=== PATIENT | male | born 1985 | race American Indian/Alaskan Native ===

== ENCOUNTER 2016-03-22 13:19 | Emergency (ER) | payer BC, OTHER | END 2016-03-22 15:56 | disposition left against medical advice (07) | LOC: ED 13:19 | DX: R56.9 Unspecified convulsions (principal); Z88.2 Allergy status to sulfonamides; Z88.8 Allergy status to other drugs, medicaments and biological substances; Z53.21 Procedure and treatment not carried out due to patient leaving prior to being seen by health care provider ==

== ENCOUNTER 2017-08-27 09:47 | Emergency (ER) | payer BC, OTHER ==
--- NOTE | 2017-08-27 10:45 | Cat Scan Report ---
FINAL REPORT EXAM: CT HEAD/BRAIN WO CON HISTORY: neuro deficits < 6hrs or sx present upon awakening TECHNIQUE: CT of the Head without IV contrast. PRIORS: None currently available. FINDINGS: There is no evidence for acute ischemia. There is no hemorrhage. There is no midline shift. There is no hydrocephalus. There is no mass. Age appropriate johnson-white matter attenuation is noted. There is no calvarial fracture. The temporal bones demonstrate aerated mastoid air cells. The middle ears appear unremarkable. Mild mucosal thickening in the left sphenoid sinus. Globes are intact. IMPRESSION: No acute intracranial findings.
[2017-08-27 11:08] LABS: INR 0.95 (0.87-1.13)
[2017-08-27 11:09] LABS: Partial Thromboplastin Time 32.5 Sec. (24.2-36.6)
[2017-08-27 11:11] LABS: BUN/Creatinine Ratio 9; Blood Urea Nitrogen 10 mg/dL (9-20); Calcium 9.6 mg/dL (8.4-10.2); Hemolysis Index 7
--- NOTE | 2017-08-27 11:24 | Emergency Department Report ---
ED Neuro Deficit HPI - General Chief Complaint: Neuro Symptoms/Deficit Stated Complaint: LEFT SIDE NUMBNESS Time Seen by Provider: 08/27/17 10:10 Source: patient Mode of arrival: Ambulatory Limitations: No Limitations - History of Present Illness Initial Comments: This is a 31-year-old man with a history of childhood epilepsy. He states that he went to work at about 9:00 this morning. Shortly there after he recalls hyperventilating that is breathing fast. He noted that he had tingling and numbness of his left arm and also his chest. He presented to the emergency department for evaluation for this. He was unaware of any weakness. On my neurological exam, there was 4+ out of 5 Global weakness of the left upper extremity to include senior operations analyst and also 4+ out of 5 accessory motor function of the shoulder. Due to this I discussed the case with Dr. Hurtado the hospitalist as well as detail and neurologist. MR/MRA and MRV of the brain has been ordered on an urgent basis. A CT of the head was normal. -: Gradual (preceded by hyperventilation) Location: left arm Presenting Symptoms: Present: Weak/Paralyzed One Side (patient did not refer weakness only numbness and tingling) History of same: No Place: work Severity: mild Quality: numb Improves With: none Worsens With: none On Anticoagulants: No Context: gradual onset Associated Symptoms: denies other symptoms (patient unaware of any weakness) Treatments Prior to Arrival: none - Related Data Home Medications: Home Medications Medication Instructions Recorded Confirmed Last Taken Lisinopril [Zestril TAB] 10 mg PO QDAY 11/10/15 11/10/15 11/10/15 Previous Rx's Medication Instructions Recorded Last Taken Type levETIRAcetam [Keppra TAB] 1,000 mg PO BID #60 tab 11/10/15 Unknown Rx Amoxicillin/K Clav Tab [Augmentin 1 tab PO Q12HR #14 tab 01/21/16 Unknown Rx 875 mg] Ibuprofen [Motrin] 800 mg PO Q8HR PRN #15 tablet 01/21/16 Unknown Rx Allergies/Adverse Reactions: Allergies Allergy/AdvReac Type Severity Reaction Status Date / Time sulfamethoxazole Allergy Swelling Verified 01/21/16 13:35 [From Bactrim] trimethoprim [From Bactrim] Allergy Swelling Verified 01/21/16 13:35 ED Review of Systems ROS: Stated complaint: LEFT SIDE NUMBNESS Other details as noted in HPI Constitutional: denies: chills, fever Eyes: denies: eye pain, eye discharge, vision change ENT: denies: ear pain, throat pain Respiratory: denies: cough, shortness of breath, wheezing Cardiovascular: denies: chest pain, palpitations Endocrine: no symptoms reported Gastrointestinal: denies: abdominal pain, nausea, diarrhea Genitourinary: denies: urgency, dysuria Musculoskeletal: denies: back pain, joint swelling, arthralgia Skin: denies: rash, lesions Neurological: as per HPI, weakness (global weakness involving the shoulder girdle as well as the left upper arm was found but actually no drift), numbness. denies: headache, paresthesias Psychiatric: denies: anxiety, depression Hematological/Lymphatic: denies: easy bleeding, easy bruising ED Past Medical Hx - Past Medical History Previous Medical History?: Yes Hx Hypertension: Yes Hx Seizures: Yes Hx Psychiatric Treatment: Yes (bilpolar, depression) - Social History Smoking Status: Never Smoker Substance Use Type: None - Medications Home Medications: Home Medications Medication Instructions Recorded Confirmed Last Taken Type Lisinopril [Zestril TAB] 10 mg PO QDAY 11/10/15 11/10/15 11/10/15 History levETIRAcetam [Keppra TAB] 1,000 mg PO BID #60 tab 11/10/15 Unknown Rx Amoxicillin/K Clav Tab [Augmentin 1 tab PO Q12HR #14 tab 01/21/16 Unknown Rx 875 mg] Ibuprofen [Motrin] 800 mg PO Q8HR PRN #15 tablet 01/21/16 Unknown Rx ED Neuro Physical Exam - General Limitations: No Limitations General appearance: alert, in no apparent distress Suspected Stroke: No (I believe defects are non-physiological) - Head Head exam: Present: atraumatic, normocephalic - Eye Eye exam: Present: normal appearance - ENT ENT exam: Present: mucous membranes moist - Neck Neck exam: Present: normal inspection. Absent: tenderness, meningismus - Respiratory Respiratory exam: Present: normal lung sounds bilaterally. Absent: respiratory distress - Cardiovascular Cardiovascular Exam: Present: regular rate, normal rhythm. Absent: systolic murmur, diastolic murmur, rubs, gallop - GI/Abdominal GI/Abdominal exam: Present: soft, normal bowel sounds. Absent: distended, tenderness, guarding, rebound, rigid - Rectal Rectal exam: Present: deferred - Extremities Exam Extremities exam: Present: normal inspection, normal capillary refill. Absent: calf tenderness - Back Exam Back exam: Present: normal inspection - Neurological Exam Neurological exam: Present: alert, oriented X3, CN II-XII intact, motor sensory deficit (see above description) - NIHSS Assessment Interval: Baseline 1a. Level of Consciousness: alert 1b. LOC Questions: answers correctly 1c. LOC Commands: performs tasks correctly 2. Best Gaze: normal 3. Visual: no visual loss 4. Facial Palsy: normal symmetrical movement 5b. Motor Arm Right: no drift 5a. Motor Arm Left: no drift 6a. Motor Leg Left: no drift 6b. Motor Leg Right: no drift 7. Limb Ataxia: absent 8. Sensory: mild/moderate sensory loss 9. Best Language: no aphasia 10. Dysarthria: normal 11. Extinction/Inattention: no abnormality Total Score: 1 Stroke Severity: Minor Stroke - Psychiatric Psychiatric exam: Present: normal affect, normal mood - Skin Skin exam: Present: warm, dry, intact, normal color. Absent: rash ED Course Vital Signs 08/27/17 09:51 Temperature 98.5 F Pulse Rate 64 Respiratory 17 Rate Blood Pressure 151/94 O2 Sat by Pulse 100 Oximetry - Reevaluation(s) Reevaluation #1: Patient's symptoms were preceded by hyperventilation. Numbness of the arm and the chest would be certainly very atypical. Motor involvement of the left upper extremity and the sensory muscle group is also difficult to reconcile to me. Notwithstanding this, we have obtained consultation from a telephone neurologist. We have ordered emergency MR studies which will begin shortly. 08/27/17 11:25 Reevaluation #2: Patient received an examination by the telemetry neurologist. She has recommended TPA. She is given the patient a stroke score of 2. She has explained to the patient the risks and benefits of TPA. She has recommended we go ahead with TPA. Therefore I am going to defer to the neurologist and order TPA. 08/27/17 11:44 Reevaluation #3: After the consultation with the neurologist Dr. Chanel who recommended TPA I placed the order and inform the primary nursing staff and the charge nurse. This was at 11:40. The patient's last known well time he states was after 9 AM. I spoke with the charge nurse related to the importance of time to administration. I also spoke with the pharmacist to clarify the order in the [employer] system as the calculator did not seem to be crossing over. The patient 's bolus dose is 7.2 mg. The nurses were instructed to remove 28 mgs from the vial give the 7.2 mg bolus dose and the remainder over 1 hour as per usual TPA for ischemic stroke protocol. Dr. Hurtado is here in the emergency department and aware of patient. 08/27/17 12:04 - Lab Data Result diagrams: 08/27/17 10:27 08/27/17 10:27 Lab Results 08/27/17 08/27/17 08/27/17 Range/Units 10:27 10:27 10:27 WBC 4.1 L (4.5-11.0) K/mm3 RBC 4.69 (3.65-5.03) M/mm3 Hgb 14.2 (11.8-15.2) gm/dl Hct 41.4 (35.5-45.6) % MCV 88 (84-94) fl MCH 30 (28-32) pg MCHC 34 (32-34) % RDW 13.4 (13.2-15.2) % Plt Count 294 (140-440) K/mm3 Lymph % (Auto) 42.3 H (13.4-35.0) % [place] % (Auto) 10.9 H (0.0-7.3) % Eos % (Auto) 0.1 (0.0-4.3) % Baso % (Auto) [place] Lymph # 1.7 (1.2-5.4) K/mm3 [place] # 0.5 (0.0-0.8) K/mm3 Eos # 0.0 (0.0-0.4) K/mm3 Baso # 0.0 (0.0-0.1) K/mm3 Seg Neutrophils % 45.9 (40.0-70.0) % Seg Neutrophils # 1.9 (1.8-7.7) K/mm3 PT 13.2 (12.2-14.9) Sec. INR 0.95 (0.87-1.13) APTT 32.5 (24.2-36.6) Sec. Thrombin Time (15.1-19.6) Sec. Sodium 138 (137-145) mmol/L Potassium 3.8 (3.6-5.0) mmol/L Chloride 100.1 (98-107) mmol/L Carbon Dioxide 27 (22-30) mmol/L Anion Gap 15 mmol/L BUN 10 (9-20) mg/dL Creatinine 1.1 (0.8-1.5) mg/dL Estimated GFR > 60 ml/min BUN/Creatinine Ratio 9 % Glucose 83 (75-100) mg/dL POC Glucose (70-105) Calcium 9.6 (8.4-10.2) mg/dL Troponin T < 0.010 (0.00-0.029) ng/mL 08/27/17 08/27/17 Range/Units 10:27 11:35 WBC (4.5-11.0) K/mm3 RBC (3.65-5.03) M/mm3 Hgb (11.8-15.2) gm/dl Hct (35.5-45.6) % MCV (84-94) fl MCH (28-32) pg MCHC (32-34) % RDW (13.2-15.2) % Plt Count (140-440) K/mm3 Lymph % (Auto) (13.4-35.0) % [place] % (Auto) (0.0-7.3) % Eos % (Auto) (0.0-4.3) % Baso % (Auto) Lymph # (1.2-5.4) K/mm3 [place] # (0.0-0.8) K/mm3 Eos # (0.0-0.4) K/mm3 Baso # (0.0-0.1) K/mm3 Seg Neutrophils % (40.0-70.0) % Seg Neutrophils # (1.8-7.7) K/mm3 PT (12.2-14.9) Sec. INR (0.87-1.13) APTT (24.2-36.6) Sec. Thrombin Time 16.1 (15.1-19.6) Sec. Sodium (137-145) mmol/L Potassium (3.6-5.0) mmol/L Chloride (98-107) mmol/L Carbon Dioxide (22-30) mmol/L Anion Gap mmol/L BUN (9-20) mg/dL Creatinine (0.8-1.5) mg/dL Estimated GFR ml/min BUN/Creatinine Ratio % Glucose (75-100) mg/dL POC Glucose 70 (70-105) Calcium (8.4-10.2) mg/dL Troponin T (0.00-0.029) ng/mL Laboratory Results - last 24 hr 08/27/17 08/27/17 08/27/17 10:27 10:27 10:27 PT 13.2 INR 0.95 APTT 32.5 Thrombin Time 16.1 Sodium 138 Potassium 3.8 Chloride 100.1 Carbon Dioxide 27 Anion Gap 15 BUN 10 Creatinine 1.1 Estimated GFR > 60 BUN/Creatinine Ratio 9 Glucose 83 Calcium 9.6 Troponin T < 0.010 Laboratory Results - last 24 hr 08/27/17 08/27/17 08/27/17 10:27 10:27 10:27 WBC 4.1 L RBC 4.69 Hgb 14.2 Hct 41.4 MCV 88 MCH 30 MCHC 34 RDW 13.4 Plt Count 294 Lymph % (Auto) 42.3 H [place] % (Auto) 10.9 H Eos % (Auto) 0.1 Baso % (Auto) [place] Operator Lymph # 1.7 [place] # 0.5 Eos # 0.0 Baso # 0.0 Seg Neutrophils % 45.9 Seg Neutrophils # 1.9 PT 13.2 INR 0.95 APTT 32.5 Thrombin Time Sodium 138 Potassium 3.8 Chloride 100.1 Carbon Dioxide 27 Anion Gap 15 BUN 10 Creatinine 1.1 Estimated GFR > 60 BUN/Creatinine Ratio 9 Glucose 83 POC Glucose Calcium 9.6 Troponin T < 0.010 08/27/17 08/27/17 10:27 11:35 WBC RBC Hgb Hct MCV MCH MCHC RDW Plt Count Lymph % (Auto) [place] % (Auto) Eos % (Auto) Baso % (Auto) Lymph # [place] # Eos # Baso # Seg Neutrophils % Seg Neutrophils # PT INR APTT Thrombin Time 16.1 Sodium Potassium Chloride Carbon Dioxide Anion Gap BUN Creatinine Estimated GFR BUN/Creatinine Ratio Glucose POC Glucose 70 Calcium Troponin T - Thrombolytic Inclusion/Exclusion Thrombolytic Exclusion Criteria: Onset of Symptoms Unknown Thrombolytic Inclusion Criteria: Ischemic Stroke Onset< 3h, NIH Stroke Scale Deficit Critical Care Time: Yes Critical care time in (mins) excluding proc time.: 60 Critical care attestation.: If time is entered above; I have spent that time in minutes in the direct care of this critically ill patient, excluding procedure time. ED Disposition Clinical Impression: Focal neurological deficit Disposition: OP ADMIT IP TO THIS HOSP Is pt being admited?: Yes Does the pt Need Aspirin: No (not at this juncture. Will be given as per core measure) Condition: Stable Time of Disposition: 12:12
[2017-08-27 11:33] LABS: Eosinophils % (Auto) 0.1 % (0.0-4.3); Hematocrit 41.4 % (35.5-45.6); Hemoglobin 14.2 gm/dl (11.8-15.2); Lymphocytes # (Auto) 1.7 K/mm3 (1.2-5.4); Lymphocytes % (Auto) 42.3 % (13.4-35.0); Mean Corpuscular HGB Conc 34 % (32-34); Mean Corpuscular Hemoglobin 30 pg (28-32); Mean Corpuscular Volume 88 fl (84-94); Monocytes # (Auto) 0.5 K/mm3 (0.0-0.8); Monocytes % (Auto) 10.9 % (0.0-7.3); Platelet Count 294 K/mm3 (140-440); Red Blood Count 4.69 M/mm3 (3.65-5.03); Red Cell Distribution Width 13.4 % (13.2-15.2)
[2017-08-27] MEDS ORDERED: ACTIVASE ONE (11:55)
--- NOTE | 2017-08-27 12:15 | History and Physical Report ---
History of Present Illness Chief complaint: I feel numb on my left side History of present illness: 31 YO Male with HTN, Seizure Disorder, Bipolar Disorder, Depression presents to ED for evaluation. Pt states that he experienced acute onset of numbness and weakness on the left side of his body, that began while he was at work this morning around 0900hrs. Pt denies fever, chills, CP, Palpitations, NVD, Syncope , BRBPR, unintentional weight loss, night sweats, productive cough, or recent ill contacts. Pt transported to by family to [facility] for further care and evaluation approximately 1 hour after onset of symptoms. Pt seen and evaluated in ED. Teleneurology consulted and recommended TPA. Pt administered TPA as per neurology request. Pt admitted to ICU. Past History Past Medical History: hypertension, seizures, other ('Bipolar, Depression) Past Surgical History: No surgical history, Other (reviewed) Social history: no significant social history, other (reviewed) Family history: no significant family history, other (reviewed) Medications and Allergies Allergies Allergy/AdvReac Type Severity Reaction Status Date / Time sulfamethoxazole Allergy Swelling Verified 01/21/16 13:35 [From Bactrim] trimethoprim [From Bactrim] Allergy Swelling Verified 01/21/16 13:35 Home Medications Medication Instructions Recorded Confirmed Last Taken Type Lisinopril [Zestril TAB] 10 mg PO QDAY 11/10/15 11/10/15 11/10/15 History levETIRAcetam [Keppra TAB] 1,000 mg PO BID #60 tab 11/10/15 Unknown Rx Amoxicillin/K Clav Tab [Augmentin 1 tab PO Q12HR #14 tab 01/21/16 Unknown Rx 875 mg] Ibuprofen [Motrin] 800 mg PO Q8HR PRN #15 tablet 01/21/16 Unknown Rx Review of Systems Constitutional: no weight loss, no weight gain, no fever, no chills Ears, nose, mouth and throat: no ear pain, no ear discharge, no tinnitis, no decreased hearing, no nose pain Cardiovascular: no chest pain, no orthopnea, no palpitations, no rapid/ irregular heart beat, no edema, no syncope, no lightheadedness Respiratory: no cough, no cough with sputum, no excessive sputum, no hemoptysis , no shortness of breath Gastrointestinal: no abdominal pain, no nausea, no vomiting, no diarrhea, no constipation, no change in bowel habits Genitourinary Male: no hematuria, no flank pain, no discharge, no urinary frequency, no urinary hesitancy, no nocturia Rectal: no pain, no incontinence, no bleeding Musculoskeletal: no neck stiffness, no neck pain, no shooting arm pain, no arm numbness/tingling, no low back pain, no shooting leg pain, no leg numbness/ tingling Integumentary: no rash, no pruritis, no redness, no sores, no wounds, no jaundice, no boils Neurological: weakness, numbness, no head injury, no transient paralysis, no vertigo, no convulsions, no aphasia, no change in speech Psychiatric: no anxiety, no memory loss, no change in sleep habits, no sleep disturbances, no insomnia, no hypersomnia, no change in appetite Endocrine: no cold intolerance, no heat intolerance, no polyphagia, no excessive thirst, no polydipsia, no nocturia, no excessive sweating Hematologic/Lymphatic: no easy bruising, no easy bleeding, no lymphadenopathy, no lymphedema Allergic/Immunologic: no urticaria, no allergic rhinitis, no wheezing, no persistent infections, no anaphylaxis, no angioedema Exam - Constitutional Vitals: Temp Pulse Resp BP Pulse Ox 98.5 F 64 17 151/94 100 08/27/17 09:51 08/27/17 09:51 08/27/17 09:51 08/27/17 09:51 08/27/17 09:51 General appearance: Present: no acute distress, well-nourished - EENT Eyes: Present: PERRL ENT: hearing intact, clear oral mucosa - Neck Neck: Present: supple, normal ROM - Respiratory Respiratory effort: normal Respiratory: bilateral: CTA - Cardiovascular Heart Sounds: Present: S1 & S2. Absent: rub, click - Extremities Extremities: pulses symmetrical, No edema Peripheral Pulses: within normal limits - Abdominal General gastrointestinal: Present: soft, non-tender, non-distended, normal bowel sounds Male genitourinary: Present: normal - Integumentary Integumentary: Present: clear, warm, dry - Musculoskeletal Musculoskeletal: left sided weakness - Psychiatric Psychiatric: appropriate mood/affect, intact judgment & insight - Neurologic Neurologic: CNII-XII intact, moves all extremities Results - Labs CBC & Chem 7: 08/27/17 10:27 08/27/17 10:27 Labs: Abnormal lab results 08/27/17 Range/Units 10:27 WBC 4.1 L (4.5-11.0) K/mm3 Lymph % (Auto) 42.3 H (13.4-35.0) % [place] % (Auto) 10.9 H (0.0-7.3) % Assessment and Plan - Patient Problems (1) CVA (cerebral vascular accident) Current Visit: Yes Status: Suspected Qualifiers: Precerebral and cerebral artery: middle cerebral artery Laterality of affected vessel: right Plan to address problem: Stroke protocol: TPA administered in ED, Admit to ICU, supportive care, PT/OT/ Speech Therapy, supportive care. Echo, Carotid Doppler, EEG. The high probability of a clinically significant, sudden or life threatening deterioration of the [neuro] system(s) required my full and direct attention, intervention and personal management. The aggregate critical care time was [65] minutes. This time is in addition to time spent performing reported procedures but includes the following: [x] Data Review and interpretation [x] Patient assessment and monitoring of vital signs [x] Documentation [x] Medication orders and management (2) Seizure disorder Current Visit: Yes Status: Acute Plan to address problem: Continue Keppra therapy, neuro check, seizure precautions. (3) Bipolar 1 disorder Current Visit: Yes Status: Acute Plan to address problem: supportive care, psychiatry consulted. (4) Depression Current Visit: Yes Status: Acute Plan to address problem: Psychiatry consulted, supportive care. (5) DVT prophylaxis Current Visit: Yes Status: Acute Plan to address problem: scd to ble while in bed.
[2017-08-27] MEDS ORDERED: ZOFRAN IV PRN (12:19)
[2017-08-27] MEDS ORDERED: REGLAN PO PRN (12:19)
[2017-08-27] MEDS ORDERED: TYLENOL PO PRN (12:19)
[2017-08-27] MEDS ORDERED: PHENERGAN PR PRN (12:19)
[2017-08-27] MEDS ORDERED: SODIUM CHLORIDE FLUSH SYRINGE 10 ML IV PRN (12:19)
[2017-08-27] MEDS ORDERED: MILK OF MAGNESIA PO PRN (12:19)
[2017-08-27] MEDS ORDERED: DULCOLAX PR PRN (12:19)
[2017-08-27] MEDS ORDERED: ACTIVASE IV ONE (12:30)
[2017-08-27] MEDS ORDERED: ACTIVASE IV NR (12:45)
--- NOTE | 2017-08-27 16:39 | Consultation ---
History of Present Illness Consult date: 08/27/17 Requesting physician: LAURA AMADOR Reason for consult: other (CVA s/p TPA for ICU monitoring) History of present illness: 31 YO Male with HTN fro 3 years on lisinopril, Seizure Disorder, Bipolar Disorder, Depression presents to ED for evaluation. 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 He states that he experienced acute onset of numbness and weakness on the left side of his arm while he was at work this morning around 0900hrs. He denies fever, chills, CP, Palpitations, NVD, Syncope, BRBPR, unintentional weight loss, night sweats, productive cough, or recent ill contacts. Patient was transported to by his family to [facility] for further care and evaluation. He arrived one hour after the onset of weakness. Patient was seen and evaluated in ED. Teleneurology consulted and recommended TPA. TPA has been administered and he is to be admitted to the ICU for monitoring. I have been consulted fro critical care management. Thank you for the consult. Patient was seen and examined. Vitals, labs, medications, chart and imaging reviewed. Medical history as documented. He states he is hungry and still has left upper extremity weakness Past History Past Medical History: hypertension, seizures, other ('Bipolar, Depression) Past Surgical History: No surgical history, Other (reviewed) Social history: no significant social history, single, other (never smoked, occasional wine) Family history: no significant family history, cancer (Maternal family, colon, breast,ovarian, lung), stroke (Father at age 40, brother cerebral neurysm with stroke at age 30), other (reviewed) Medications and Allergies Allergies Allergy/AdvReac Type Severity Reaction Status Date / Time sulfamethoxazole Allergy Swelling Verified 01/21/16 13:35 [From Bactrim] trimethoprim [From Bactrim] Allergy Swelling Verified 01/21/16 13:35 Home Medications Medication Instructions Recorded Confirmed Last Taken Type Lisinopril [Zestril TAB] 10 mg PO QDAY 11/10/15 11/10/15 11/10/15 History levETIRAcetam [Keppra TAB] 1,000 mg PO BID #60 tab 11/10/15 Unknown Rx Amoxicillin/K Clav Tab [Augmentin 1 tab PO Q12HR #14 tab 12/08/16 Unknown Rx 875 mg] Ibuprofen [Motrin] 800 mg PO Q8HR PRN #15 tablet 01/21/16 Unknown Rx Active Meds: Active Medications Acetaminophen (Tylenol) 650 mg PO Q4H PRN PRN Reason: Pain, Mild (1-3) Bisacodyl (Dulcolax) 10 mg MT QDAY PRN PRN Reason: Constipation Levetiracetam (Keppra) 1,000 mg PO BID COLLIN Magnesium Hydroxide (Milk Of Magnesia) 30 ml PO Q4H PRN PRN Reason: Constipation Metoclopramide HCl (Reglan) 10 mg PO Q6H PRN PRN Reason: Nausea And Vomiting Ondansetron HCl (Zofran) 4 mg IV Q8H PRN PRN Reason: N/V unrelieved by Reglan Pravastatin Sodium (Pravachol) 20 mg PO QHS COLLIN Promethazine HCl (Phenergan) 25 mg MT Q6H PRN PRN Reason: Nausea And Vomiting Sodium Chloride (Sodium Chloride Flush Syringe 10 Ml) 10 ml IV PRN PRN PRN Reason: LINE FLUSH Review of Systems Constitutional: no weight loss, no weight gain, no fever, no chills, no sweats, no night sweats Ears, nose, mouth and throat: no ear pain, no ear discharge, no decreased hearing, no nasal congestion, no nasal discharge Cardiovascular: no chest pain, no orthopnea, no palpitations, no rapid/ irregular heart beat, no syncope, no leg edema, no decreased exercise tolerance Respiratory: no cough, no cough with sputum, no excessive sputum, no shortness of breath, no dyspnea on exertion, no pleurisy, no respiratory infections Gastrointestinal: no abdominal pain, no nausea, no vomiting, no diarrhea, no constipation, no hematemesis, no loss of appetite Genitourinary Male: no dysuria, no hematuria, no urinary frequency, no nocturia , no incontinence Rectal: no pain, no incontinence, no bleeding Musculoskeletal: arm numbness/tingling, no neck stiffness, no neck pain, no shooting arm pain, no shooting leg pain, no leg numbness/tingling, no redness of joints, no morning stiffness Integumentary: no rash, no pruritis, no redness, no wounds, no boils, no darkening of skin Neurological: transient paralysis, weakness, parathesias, numbness, paralysis ( left arm), no head injury, no seizures, no syncope, no vertigo, no headaches, no gait dysfunction, no sensory deficit, no double vision, no loss of vision Physical Examination Vital signs: Vital Signs Temp Pulse Resp BP Pulse Ox 98.5 F 64 17 151/94 100 08/27/17 09:51 08/27/17 09:51 08/27/17 09:51 08/27/17 09:51 08/27/17 09:51 Results - Laboratory Findings CBC and BMP: 08/27/17 10:27 08/27/17 10:27 PT/INR, D-dimer PT 13.2 Sec. (12.2-14.9) 08/27/17 10:27 INR 0.95 (0.87-1.13) 08/27/17 10:27 Abnormal lab findings: Abnormal Labs 08/27/17 10:27 WBC 4.1 L Lymph % (Auto) 42.3 H [place] % (Auto) 10.9 H - Diagnostic Findings Additional studies: CT head..no acute intracranial abnormalities Assessment and Plan CVA (cerebral vascular accident) Seizure disorder Bipolar disorder h/o Depression -Admit ICU -Stroke protocol -post TPA protocol -Get 2D Echocardiogram with bubble study -MRI/MRA of the brain -Aspirin 24 hours post TPA - Carotid dopplers -Fasting lipid profile -Blood pressure control -Neuro checks with monitoring for bleeding -PT/OT to evaluate and treat - Seizure precautions -Secondary stroke prophylaxis -Neurology consult -Psychiatry consult Care plan discussed with ER physician and with the patient. All questions were answered The high probability of a clinically significant, sudden or life threatening deterioration of the [neuro] system(s) required my full and direct attention, intervention and personal management. The aggregate critical care time was [35] minutes. This time is in addition to time spent performing reported procedures but includes the following: [x] Data Review and interpretation [x] Patient assessment and monitoring of vital signs [x] Documentation [x] Medication orders and management
[2017-08-27] MEDS ORDERED: PRAVACHOL PO SCH (22:00)
[2017-08-27] MEDS ORDERED: KEPPRA PO SCH (22:00)
[2017-08-27 23:12] VITALS: BP 127/84
[2017-08-28 04:04] LABS: Chol/HDL Ratio 3.68 %
== END 2017-08-27 23:05 | disposition left against medical advice (07) ==
LOC: ED 09:47 → CC1 15:08 → UNDOADMIN 15:08 → ED 23:05
DX: I63.9 Cerebral infarction, unspecified (principal); G40.909 Epilepsy, unspecified, not intractable, without status epilepticus; I10 Essential (primary) hypertension; Z88.1 Allergy status to other antibiotic agents; Z88.2 Allergy status to sulfonamides
CPT/HCPCS: 36415; 70450; 80048; 82962; 84484; 85025; 85610; 85670; 85730; 93005; 93010; 99291; A9270; J2997; 80061; 96374

== ENCOUNTER 2020-03-29 06:48 | Emergency (ER) | payer OTHER ==
[2020-03-29 07:03] VITALS: BP 132/75
[2020-03-29] MEDS ORDERED: dexAMETHasone 20 MG/5 ML VIAL IM ONE (07:32)
[2020-03-29] MEDS ORDERED: HYDROcodone/ACETAMINOPHEN 10-325MG TAB PO ONE (07:32)
[2020-03-29] MEDS ORDERED: KETOROLAC 60 MG/2 ML INJ IM ONE (07:32)
--- NOTE | 2020-03-29 07:37 | Emergency Department Report ---
ED Back Pain/Injury HPI - General Chief Complaint: Back Pain/Injury Stated Complaint: BACK PAIN Time Seen by Provider: 03/29/20 07:10 Source: patient Limitations: No Limitations - History of Present Illness Initial Comments: 34-year-old male with a past medical history of hypertension and seizure disorder presents to the ER today complaint of a flareup of his chronic low back pain. Patient states that his low back pain flared up this morning. He denies any particular injury or strenuous activity to flareup his pain. Patient states that the pain radiates down both legs all the way down to his feet. He reports mild intermittent tingling and numbness mainly to his feet. He denies any saddle anesthesia, lower extremity weakness, bowel or bladder incontinence, urinary retention or constipation, abdominal pain, fever chills or any other symptoms. Patient states that she has a history of herniated disc at L4-L5. He states that he was supposed to have elective laminectomy but that was postponed due to COVID-19. He is spine surgeon is Dr. Collins at [facility]. He states that he has been taking Aleve for the pain which has not been helping. He states that he has not any prescribed medication for his pain. MD Complaint: back pain -: Gradual, month(s) (chronic ) - Related Data Home Medications Medication Instructions Recorded Confirmed Last Taken lisinopriL [Zestril TAB] 5 mg PO QDAY 11/10/15 08/27/17 11/10/15 levETIRAcetam [Keppra TAB] 2,000 mg PO BID 08/27/17 08/27/17 Unknown Previous Rx's Medication Instructions Recorded Last Taken Type HYDROcodone/APAP 5-325 [[place] 1 each PO Q4HR PRN #10 tablet 03/29/20 Unknown Rx 5/325] methOCARBAMOL [Robaxin TAB] 750 mg PO Q8H PRN #30 tablet 03/29/20 Unknown Rx methylPREDNISolone [Medrol 4MG 4 mg PO DAILY #1 tab.ds.pk 03/29/20 Unknown Rx DOSEPAK (21 tabs)] Allergies Allergy/AdvReac Type Severity Reaction Status Date / Time sulfamethoxazole Allergy Swelling Verified 01/21/16 13:35 [From Bactrim] trimethoprim [From Bactrim] Allergy Swelling Verified 12/08/16 13:35 ED Review of Systems ROS: Stated complaint: BACK PAIN Other details as noted in HPI Comment: All other systems reviewed and negative Musculoskeletal: back pain Neurological: paresthesias, abnormal gait ED Past Medical Hx - Past Medical History Previous Medical History?: Yes Hx Hypertension: Yes Hx Seizures: Yes Hx Psychiatric Treatment: Yes (bilpolar, depression) Additional medical history: Back pain/TENA - Surgical History Past Surgical History?: No - Social History Smoking Status: Never Smoker Substance Use Type: None - Medications Home Medications: Home Medications Medication Instructions Recorded Confirmed Last Taken Type lisinopriL [Zestril TAB] 5 mg PO QDAY 11/10/15 08/27/17 11/10/15 History levETIRAcetam [Keppra TAB] 2,000 mg PO BID 08/27/17 08/27/17 Unknown History HYDROcodone/APAP 5-325 [[place] 1 each PO Q4HR PRN #10 tablet 03/29/20 Unknown Rx 5/325] methOCARBAMOL [Robaxin TAB] 750 mg PO Q8H PRN #30 tablet 03/29/20 Unknown Rx methylPREDNISolone [Medrol 4MG 4 mg PO DAILY #1 tab.ds.pk 03/29/20 Unknown Rx DOSEPAK (21 tabs)] ED Physical Exam - General Limitations: No Limitations General appearance: alert, other (patient appears to be uncomfortable and in pain) - Head Head exam: Present: atraumatic, normocephalic, normal inspection - Eye Eye exam: Present: normal appearance, PERRL, EOMI Pupils: Present: normal accommodation - ENT ENT exam: Present: normal exam, mucous membranes moist - Neck Neck exam: Present: normal inspection, full ROM - Respiratory Respiratory exam: Present: normal lung sounds bilaterally. Absent: respiratory distress - Cardiovascular Cardiovascular Exam: Present: regular rate, normal rhythm, normal heart sounds - GI/Abdominal GI/Abdominal exam: Present: soft. Absent: distended, tenderness - Extremities Exam Extremities exam: Present: full ROM. Absent: pedal edema, calf tenderness - Back Exam Back exam: Present: normal inspection, paraspinal tenderness (left mid lumbar ), vertebral tenderness (Mid lumbar). Absent: full ROM (Mod limited due to pain), rash noted - Neurological Exam Neurological exam: Present: alert, oriented X3, CN II-XII intact, abnormal gait (slow limping gait due to pain ), other (strength 5/5; sensation intact bilateral LE; No saddle anesthesia). Absent: motor sensory deficit - Psychiatric Psychiatric exam: Absent: normal affect, normal mood - Skin Skin exam: Present: intact ED Course Vital Signs 03/29/20 07:00 Temperature 98.7 F Pulse Rate 75 Respiratory 20 Rate Blood Pressure 132/75 O2 Sat by Pulse 97 Oximetry ED Medical Decision Making - Medical Decision Making The patient presented with back pain. The patient is resting comfortably and feels better, is alert, talkative, interactive and in no distress. The patient is neurologically intact and is ambulatory in the ED. the patient has no fever, no bowel or bladder incontinence, no saddle anesthesia and is otherwise alert and well-appearing. The history, and physical examination and current condition does not suggest the presence of acute spinal epidural abscess, acute epidural bleed, cauda equina syndrome, abdominal/thoracic aortic aneurysm, aortic dissection or other acute process requiring further testing, treatment or consultation in the emergency department. The vital signs have been stable. The patient condition is stable and appropriate for discharge. The patient will pursue further outpatient evaluation with the primary care physician or other designated or consulting physician as indicated in the discharge instructions. Critical care attestation.: If time is entered above; I have spent that time in minutes in the direct care of this critically ill patient, excluding procedure time. ED Disposition Clinical Impression: Lumbar radicular pain Disposition: - TO HOME OR SELFCARE Is pt being admited?: No Does the pt Need Aspirin: No Condition: Stable Instructions: Sciatica Additional Instructions: Take the medications as prescribed. It is important that you follow-up with your neurosurgeon to schedule your surgery. Return to the ER if your symptoms worsens or changes in any way. Prescriptions: methylPREDNISolone [Medrol 4MG DOSEPAK (21 tabs)] 4 mg PO DAILY #1 tab.ds.pk HYDROcodone/APAP 5-325 [[place] 5/325] 1 each PO Q4HR PRN #10 tablet PRN Reason: Pain methOCARBAMOL [Robaxin TAB] 750 mg PO Q8H PRN #30 tablet PRN Reason: Muscle Spasm Referrals: DEANNA COLLINS MD [Referring] - 3-5 Days Forms: Work/School Release Form(ED) Time of Disposition: 07:43
== END 2020-03-29 08:15 | disposition home or self-care (01) ==
LOC: ED 06:48
DX: M54.16 Radiculopathy, lumbar region (principal); I10 Essential (primary) hypertension; F31.9 Bipolar disorder, unspecified; Z86.69 Personal history of other diseases of the nervous system and sense organs; Z88.2 Allergy status to sulfonamides; Z88.8 Allergy status to other drugs, medicaments and biological substances; Z79.899 Other long term (current) drug therapy
CPT/HCPCS: 96372; 99282; J1100; J1885

== ENCOUNTER 2020-07-26 06:23 | Emergency (ER) | payer OTHER ==
[2020-07-26 07:08] VITALS: BP 134/77
[2020-07-26] MEDS ORDERED: KETOROLAC 60 MG/2 ML INJ IM ONE (07:32)
[2020-07-26] MEDS ORDERED: predniSONE 20 MG TAB PO ONE (07:32)
--- NOTE | 2020-07-26 09:08 | Emergency Department Report ---
ED Back Pain/Injury HPI - General Chief Complaint: Back Pain/Injury Stated Complaint: BACK PAIN Time Seen by Provider: 07/26/20 07:23 Source: patient Limitations: No Limitations - History of Present Illness Initial Comments: This is a 34-year-old male nontoxic, well nourished in appearance, no acute signs of distress presents to the ED with c/o of acute on chronic lower back pa in. Patient stated that the past 2 days he was moving and developed this pain. Patient stated has history of lumbar stenosis and has a scheduled laminectomy procedure coming up. Patient denies any radiation of pain.. Patient denies any trauma. Denies any bladder or bowel instability. Patient denies any urinary symptoms. Denies any fever, chills, nausea, vomiting, headache, stiff neck, chest pain or shortness of breath. Patient denies any numbness or tingling. Stated allergies to Bactrim. MD Complaint: back pain -: days(s) Similar Symptoms Previously: Yes Place: home Radiation: none Severity: mild Severity scale (0 -10): 8 Quality: aching Consistency: intermittent Improves With: immobilization, sitting upright Worsens With: movement, walking Context: while lifting, turning/twisting Associated Symptoms: denies other symptoms. denies: confusion, weakness, chest pain, numbness, difficulty walking, cough, difficulty urinating, diaphoresis, incontinence, fever/chills, constipation, headaches, abdominal pain, loss of appetite, malaise, nausea/vomiting, rash, seizure, shortness of breath, syncope - Related Data Home Medications Medication Instructions Recorded Confirmed Last Taken lisinopriL [Zestril TAB] 5 mg PO QDAY 11/10/15 08/27/17 11/10/15 levETIRAcetam [Keppra TAB] 2,000 mg PO BID 08/27/17 08/27/17 Unknown Previous Rx's Medication Instructions Recorded Last Taken Type HYDROcodone/APAP 5-325 [[place] 1 each PO Q4HR PRN #10 tablet 03/29/20 Unknown Rx 5/325] methOCARBAMOL [Robaxin TAB] 750 mg PO Q8H PRN #30 tablet 03/29/20 Unknown Rx methylPREDNISolone [Medrol 4MG 4 mg PO DAILY #1 tab.ds.pk 03/29/20 Unknown Rx DOSEPAK (21 tabs)] Cyclobenzaprine [Flexeril] 10 mg PO QHS PRN #10 tablet 07/26/20 Unknown Rx Naproxen 500 mg PO Q12H PRN #12 tablet 07/26/20 Unknown Rx Allergies Allergy/AdvReac Type Severity Reaction Status Date / Time sulfamethoxazole Allergy Swelling Verified 07/26/20 08:37 [From Bactrim] trimethoprim [From Bactrim] Allergy Swelling Verified 07/26/20 08:37 ED Review of Systems ROS: Stated complaint: BACK PAIN Other details as noted in HPI Comment: All other systems reviewed and negative Constitutional: denies: chills, fever Eyes: denies: eye pain, eye discharge, vision change ENT: denies: ear pain, throat pain Respiratory: denies: cough, shortness of breath, wheezing Cardiovascular: denies: chest pain, palpitations Endocrine: no symptoms reported Gastrointestinal: denies: abdominal pain, nausea, diarrhea Genitourinary: denies: urgency, dysuria Musculoskeletal: back pain. denies: joint swelling, arthralgia Skin: denies: rash, lesions Neurological: denies: headache, weakness, paresthesias Psychiatric: denies: anxiety, depression Hematological/Lymphatic: denies: easy bleeding, easy bruising ED Past Medical Hx - Past Medical History Previous Medical History?: Yes Hx Hypertension: Yes Hx Seizures: Yes Hx Psychiatric Treatment: Yes (bilpolar, depression) Additional medical history: Back pain/TENA - Surgical History Past Surgical History?: No - Social History Smoking Status: Current Every Day Smoker - Medications Home Medications: Home Medications Medication Instructions Recorded Confirmed Last Taken Type lisinopriL [Zestril TAB] 5 mg PO QDAY 11/10/15 08/27/17 11/10/15 History levETIRAcetam [Keppra TAB] 2,000 mg PO BID 08/27/17 08/27/17 Unknown History HYDROcodone/APAP 5-325 [[place] 1 each PO Q4HR PRN #10 tablet 03/29/20 Unknown Rx 5/325] methOCARBAMOL [Robaxin TAB] 750 mg PO Q8H PRN #30 tablet 03/29/20 Unknown Rx methylPREDNISolone [Medrol 4MG 4 mg PO DAILY #1 tab.ds.pk 03/29/20 Unknown Rx DOSEPAK (21 tabs)] Cyclobenzaprine [Flexeril] 10 mg PO QHS PRN #10 tablet 07/26/20 Unknown Rx Naproxen 500 mg PO Q12H PRN #12 tablet 07/26/20 Unknown Rx ED Physical Exam - General Limitations: No Limitations General appearance: alert, in no apparent distress - Head Head exam: Present: atraumatic, normocephalic - Eye Eye exam: Present: normal appearance - Neck Neck exam: Present: normal inspection, full ROM. Absent: lymphadenopathy - Respiratory Respiratory exam: Absent: respiratory distress - Cardiovascular Cardiovascular Exam: Present: regular rate - GI/Abdominal GI/Abdominal exam: Present: soft. Absent: distended, tenderness - Extremities Exam Extremities exam: Present: normal inspection, full ROM, normal capillary refill. Absent: tenderness - Back Exam Back exam: Present: normal inspection, full ROM, paraspinal tenderness (Left lumbar paraspinal). Absent: tenderness, CVA tenderness (R), CVA tenderness (L), muscle spasm, vertebral tenderness, rash noted - Expanded Back Exam Expanded Back exam: Absent: saddle anesthesia Back exam: Negative Straight Leg Raising: Left, Right - Neurological Exam Neurological exam: Present: alert, oriented X3, normal gait - Psychiatric Psychiatric exam: Present: normal affect, normal mood - Skin Skin exam: Present: warm, dry, intact, normal color. Absent: rash ED Course Vital Signs 07/26/20 07:01 Temperature 98.6 F Pulse Rate 78 Respiratory 16 Rate Blood Pressure 134/77 O2 Sat by Pulse 97 Oximetry - Reevaluation(s) Reevaluation #1: 07/26/20 09:04 Patient is speaking in full sentences with no signs of distress noted. ED Medical Decision Making - Medical Decision Making This is a 34-year-old male that presents with low back strain. Patient is stable was examined by me. There is no spinal tenderness. There is no cauda equina syndrome during examination. No bladder or bowel instability. Patient received Toradol 60 mg IM and prednisone in the ED which stated his symptoms has resolved and subsided. Patient is discharged with muscle relaxant and Motrin. Patient was instructed not to operate any machinery while taking muscle relaxant as they cause her drowsiness. Patient was referred to Follow-up with a primary care doctor in 3-5 days or if symptoms worsen and continue return to emergency room as soon as possible. At time of discharge, the patient does not seem toxic or ill in appearance. No acute signs of distress noted. Patient agrees to discharge treatment plan of care. No further questions noted by the patient. This chart is dictated with using [employer] Critical care attestation.: If time is entered above; I have spent that time in minutes in the direct care of this critically ill patient, excluding procedure time. ED Disposition Clinical Impression: Low back strain Qualifiers: Encounter type: initial encounter Qualified Code(s): S39.012A - Strain of muscle, fascia and tendon of lower back, initial encounter Disposition: TO HOME OR SELFCARE Is pt being admited?: No Does the pt Need Aspirin: No Condition: Stable Instructions: Lumbar Sprain Additional Instructions: Follow-up with your primary care doctor in 3-5 days or if symptoms worsen such as bladder or bowel stability, chest pain, short of breath, numbness or tingling sensation in extremities, headache, dizziness, visual changes, nausea vomiting, or abdominal pain, return back to emergency room as was possible. Take naproxen and Flexeril as prescribed. Do not operate heavy machinery while taking Flexeril due to sedation Prescriptions: Cyclobenzaprine [Flexeril] 10 mg PO QHS PRN #10 tablet PRN Reason: Muscle Spasm Naproxen 500 mg PO Q12H PRN #12 tablet PRN Reason: Pain , Severe (7-10) Referrals: PRIMARY CARE, [Primary Care Provider] - 3-5 Days COLLIN GORDILLO MD [Staff Physician] - 3-5 Days Forms: Work/School Release Form(ED) Time of Disposition: 09:05
== END 2020-07-26 09:14 | disposition home or self-care (01) ==
LOC: ED 06:23
DX: S39.012A Strain of muscle, fascia and tendon of lower back, initial encounter (principal); G89.29 Other chronic pain; I10 Essential (primary) hypertension; F31.9 Bipolar disorder, unspecified; F17.200 Nicotine dependence, unspecified, uncomplicated; Z98.890 Other specified postprocedural states; Z88.2 Allergy status to sulfonamides; Z88.8 Allergy status to other drugs, medicaments and biological substances; Z79.899 Other long term (current) drug therapy; X58.XXXA Exposure to other specified factors, initial encounter; Y93.89 Activity, other specified; Y92.89 Other specified places as the place of occurrence of the external cause; Y99.8 Other external cause status
CPT/HCPCS: 96372; 99282; J1885; J7512

== ENCOUNTER 2021-01-09 07:51 | Emergency (ER) | payer OTHER ==
[2021-01-09] MEDS ORDERED: IBUPROFEN 600 MG TAB PO ONE (08:27)
--- NOTE | 2021-01-09 08:27 | Emergency Department Report ---
ED General Adult HPI - General Chief complaint: Chest Pain Stated complaint: CHEST PAIN PUI?: Yes Source: patient Mode of arrival: Ambulatory Limitations: No Limitations - History of Present Illness Initial comments: 35-year-old -Polish male with a history of hypertension and epilepsy that is currently on lisinopril 5 mg and Keppra 750 twice daily presents to the emergency room complaining of chest pain x3 days and feels more like pressure. Patient states that this pressure is worse when lying down. He complains of a dry cough nasal congestion nasal pressure. He denies any fever or chills. Patient denies any radiation of pain to the jaw back or left arm. Patient denies any nausea no vomiting. He states that he has been using his humidifier. He denies any fever. Currently does not have a primary care provider as he is in between insurances. Onset/Timin -: days(s) Location: chest Radiation: non-radiation Severity scale (0 -10): 6 - Related Data Home Medications Medication Instructions Recorded Confirmed Last Taken levETIRAcetam [Keppra TAB] 750 mg PO BID 08/27/17 08/27/17 01/08/21 20:00 Previous Rx's Medication Instructions Recorded Last Taken Type Amlodipine Besylate [Norvasc] 5 mg PO QDAY #30 tablet 01/09/21 Unknown Rx Allergies Allergy/AdvReac Type Severity Reaction Status Date / Time sulfamethoxazole Allergy Swelling Verified 01/09/21 08:01 [From Bactrim] trimethoprim [From Bactrim] Allergy Swelling Verified 01/09/21 08:01 ED Review of Systems ROS: Stated complaint: CHEST PAIN Other details as noted in HPI Comment: All other systems reviewed and negative Respiratory: cough (Dry) Cardiovascular: chest pain Gastrointestinal: denies: abdominal pain, nausea, diarrhea Musculoskeletal: denies: back pain, joint swelling, arthralgia Neurological: denies: headache, weakness, paresthesias ED Past Medical Hx - Past Medical History Hx Hypertension: Yes Hx Seizures: Yes Hx Psychiatric Treatment: Yes (bilpolar, depression) Additional medical history: Back pain/TENA - Social History Smoking Status: Current Every Day Smoker - Medications Home Medications: Home Medications Medication Instructions Recorded Confirmed Last Taken Type levETIRAcetam [Keppra TAB] 750 mg PO BID 08/27/17 08/27/17 01/08/21 20:00 History Amlodipine Besylate [Norvasc] 5 mg PO QDAY #30 tablet 01/09/21 Unknown Rx ED Physical Exam - General Limitations: No Limitations General appearance: alert, in no apparent distress - Head Head exam: Present: atraumatic, normocephalic - Eye Eye exam: Present: normal appearance - ENT ENT exam: Present: mucous membranes moist, normal external ear exam - Neck Neck exam: Present: normal inspection - Respiratory Respiratory exam: Present: normal lung sounds bilaterally, chest wall tenderness. Absent: respiratory distress, wheezes, rhonchi, accessory muscle use - Cardiovascular Cardiovascular Exam: Present: regular rate, normal rhythm. Absent: systolic murmur, diastolic murmur, rubs, gallop - GI/Abdominal GI/Abdominal exam: Present: soft, normal bowel sounds. Absent: distended, tenderness - Rectal Rectal exam: Present: deferred - Extremities Exam Extremities exam: Present: normal inspection. Absent: pedal edema - Back Exam Back exam: Present: normal inspection, full ROM. Absent: tenderness - Neurological Exam Neurological exam: Present: alert, oriented X3, normal gait - Psychiatric Psychiatric exam: Present: normal affect, normal mood - Skin Skin exam: Present: warm, dry, intact, normal color. Absent: rash ED Course Vital Signs 01/09/21 07:52 Temperature 98.7 F Pulse Rate 85 Respiratory 18 Rate Blood Pressure 121/82 [Right] O2 Sat by Pulse 99 Oximetry ED Medical Decision Making - Lab Data Result diagrams: 01/09/21 09:11 01/09/21 09:11 - Radiology Data Radiology results: report reviewed Study Comments [facility] [address] [place] [address] XRay Report Signed Patient: EDITA MCINTYRE JUNIOR, III MR #: [id number] : 1985 Acct:[id number] Age/Sex: 35 / M ADM Date: 01/09/21 Loc: ED Attending Dr: Ordering Physician: AUTUMN FERRO Date of Service: 01/09/21 Procedure(s): XR chest routine 2V Accession Number(s): [id number] cc: AUTUMN FERRO Fluoro Time In Minutes: CHEST 2 VIEWS INDICATION / CLINICAL INFORMATION: sob,cough and rales. FINDINGS: SUPPORT DEVICES: None. HEART / MEDIASTINUM: No significant abnormality. LUNGS / PLEURA: No significant pulmonary or pleural abnormality. No pneumothora x. ADDITIONAL FINDINGS: No significant additional findings. IMPRESSION: 1. No acute findings. Signer Name: Addy Hobson MD Signed: 01/09/2021 9:00 AM Workstation Name: [id number] Transcribed By: KENDRA Dictated By: Addy Hobson MD Electronically Authenticated By: Addy Hobson MD Signed Date/Time: 01/09/21899 DD/ 8 TD/TT: - Medical Decision Making 35-year-old -Polish male with a history of hypertension and epilepsy that is currently on lisinopril 5 mg and Keppra 750 twice daily presents to the emergency room complaining of chest pain x3 days and feels more like pressure. Patient states that this pressure is worse when lying down. He complains of a dry cough nasal congestion nasal pressure. He denies any fever or chills. Patient denies any radiation of pain to the jaw back or left arm. Patient denies any nausea no vomiting. He states that he has been using his humidifier. He denies any fever. Currently does not have a primary care provider as he is in between insurances. Critical care attestation.: If time is entered above; I have spent that time in minutes in the direct care of this critically ill patient, excluding procedure time. ED Disposition Clinical Impression: Acute nonspecific chest pain with low risk of coronary artery disease, Tenderness of chest wall, Cough due to angiotensin-converting enzyme inhibitor Disposition: 01 HOME / SELF CARE / HOMELESS Is pt being admited?: No Does the pt Need Aspirin: No Condition: Stable Instructions: Chest Pain (ED), Nonspecific Chest Pain, Adult, [id number], Cough, Adult, [id number] Additional Instructions: Chest x-ray is negative for any acute findings labs are all stable I would like for you to stop taking your lisinopril at this can be the reason of your dry cough. I would like for you to start on Norvasc 5 mg daily for blood pressure. You can take Tylenol or ibuprofen for chest wall tenderness. And follow-up with your primary care provider if you do not have one I have listed several below for your convenience. Prescriptions: Amlodipine Besylate [Norvasc] 5 mg PO QDAY #30 tablet Referrals: CARBUCCIA,COLLIN, MD [Staff Physician] - 3-5 Days ROOSEVELT HENNING MD [Staff Physician] - 3-5 Days Forms: Work/School Release Form(ED) Time of Disposition: 10:29
--- NOTE | 2021-01-09 09:04 | XRay Report ---
CHEST 2 VIEWS INDICATION / CLINICAL INFORMATION: sob,cough and rales. FINDINGS: SUPPORT DEVICES: None. HEART / MEDIASTINUM: No significant abnormality. LUNGS / PLEURA: No significant pulmonary or pleural abnormality. No pneumothorax. ADDITIONAL FINDINGS: No significant additional findings. IMPRESSION: 1. No acute findings. Signer Name: Addy Hobson MD Signed: 01/09/2021 9:00 AM Workstation Name: [id number]
[2021-01-09 09:49] LABS: Basophils % (Auto) 0.5 % (0.0-1.8); Eosinophils % (Auto) 0.9 % (0.0-4.3); Hematocrit 42.1 % (35.5-45.6); Hemoglobin 13.8 gm/dl (11.8-15.2); Lymphocytes # (Auto) 1.4 K/mm3 (1.2-5.4); Lymphocytes % (Auto) 34.3 % (13.4-35.0); Mean Corpuscular HGB Conc 33 % (32-34); Mean Corpuscular Volume 92 fl (84-94); Monocytes # (Auto) 0.5 K/mm3 (0.0-0.8); Monocytes % (Auto) 13.4 % (0.0-7.3); Platelet Count 261 K/mm3 (140-440); Red Blood Count 4.59 M/mm3 (3.65-5.03); Red Cell Distribution Width 13.5 % (13.2-15.2)
[2021-01-09 10:12] LABS: Alanine Aminotransferase 10 units/L (7-56); Albumin 4.3 g/dL (3.9-5); BUN/Creatinine Ratio 10; Blood Urea Nitrogen 10 mg/dL (9-20); Calcium 8.7 mg/dL (8.4-10.2); Hemolysis Index 8
[2021-01-09 11:03] VITALS: BP 130/84
== END 2021-01-09 10:51 | disposition home or self-care (01) ==
LOC: ED 07:51
DX: R07.9 Chest pain, unspecified (principal); R07.89 Other chest pain; R05.8 Other specified cough; F17.200 Nicotine dependence, unspecified, uncomplicated; I10 Essential (primary) hypertension; Z88.2 Allergy status to sulfonamides
CPT/HCPCS: 36415; 71046; 80053; 84484; 85025; 93005; 99283; 99284

== ENCOUNTER 2021-03-17 07:20 | Emergency (ER) | payer BC, OTHER ==
[2021-03-17 07:52] VITALS: BP 117/83
--- NOTE | 2021-03-17 08:07 | Emergency Department Report ---
ED Back Pain/Injury HPI - General Chief Complaint: Back Pain/Injury Stated Complaint: BACK PAIN & HBP Time Seen by Provider: 03/17/21 07:27 Source: patient Limitations: No Limitations - History of Present Illness Initial Comments: 35 YO AA MALE COMES TO ER WITH LOW BACK PAIN RADIATING TO R.E. THIS IS A/C ISSUE. 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 HE STATES HE LIFTS A LOT OF BOXES AT WORK AND TWEEKED HIS BACK- NOW WITH INC PAIN TO RLE FROM BUTTOX TO HEAL. HE IS AMBULATORY NO FALL OR TRAUMA HE IS REQUESTING REFILL OF HIS NORVASC HE HAS BEEN OUT FOR 5 DAYS NO CP OR SOB MD Complaint: back pain -: year(s) Similar Symptoms Previously: Yes Place: home, work Radiation: right leg Severity: mild Severity scale (0 -10): 4 Quality: burning Consistency: constant Improves With: immobilization Worsens With: movement Context: while lifting Associated Symptoms: denies other symptoms - Related Data Home Medications Medication Instructions Recorded Confirmed Last Taken levETIRAcetam [Keppra TAB] 750 mg PO BID 08/27/17 08/27/17 01/08/21 20:00 Previous Rx's Medication Instructions Recorded Last Taken Type Amlodipine Besylate [Norvasc] 5 mg PO QDAY #30 tablet 03/17/21 Unknown Rx Cyclobenzaprine [Flexeril] 10 mg PO TID PRN #10 tablet 03/17/21 Unknown Rx Ibuprofen [Motrin] 800 mg PO Q8HR PRN #30 tablet 03/17/21 Unknown Rx predniSONE [Deltasone] 20 mg PO DAILY #5 tablet 03/17/21 Unknown Rx Allergies Allergy/AdvReac Type Severity Reaction Status Date / Time sulfamethoxazole Allergy Swelling Verified 01/09/21 08:01 [From Bactrim] trimethoprim [From Bactrim] Allergy Swelling Verified 01/09/21 08:01 ED Review of Systems ROS: Stated complaint: BACK PAIN & HBP Other details as noted in HPI Comment: All other systems reviewed and negative ED Past Medical Hx - Past Medical History Previous Medical History?: Yes Hx Hypertension: Yes Hx Seizures: Yes Hx Psychiatric Treatment: Yes (bilpolar, depression) Additional medical history: Back pain/TENA - Surgical History Past Surgical History?: No - Family History Family history: no significant - Social History Smoking Status: Current Every Day Smoker Substance Use Type: None - Medications Home Medications: Home Medications Medication Instructions Recorded Confirmed Last Taken Type levETIRAcetam [Keppra TAB] 750 mg PO BID 08/27/17 08/27/17 01/08/21 20:00 History Amlodipine Besylate [Norvasc] 5 mg PO QDAY #30 tablet 03/17/21 Unknown Rx Cyclobenzaprine [Flexeril] 10 mg PO TID PRN #10 tablet 03/17/21 Unknown Rx Ibuprofen [Motrin] 800 mg PO Q8HR PRN #30 tablet 03/17/21 Unknown Rx predniSONE [Deltasone] 20 mg PO DAILY #5 tablet 03/17/21 Unknown Rx ED Physical Exam - General Limitations: No Limitations General appearance: alert, in no apparent distress - Head Head exam: Present: atraumatic, normocephalic - Eye Eye exam: Present: normal appearance - ENT ENT exam: Present: mucous membranes moist - Neck Neck exam: Present: normal inspection - Respiratory Respiratory exam: Present: normal lung sounds bilaterally. Absent: respiratory distress - Cardiovascular Cardiovascular Exam: Present: regular rate, normal rhythm. Absent: systolic murmur, diastolic murmur, rubs, gallop - GI/Abdominal GI/Abdominal exam: Present: soft, normal bowel sounds - Rectal Rectal exam: Present: deferred - Extremities Exam Extremities exam: Present: normal inspection - Back Exam Back exam: Present: normal inspection - Neurological Exam Neurological exam: Present: alert, oriented X3 - Psychiatric Psychiatric exam: Present: normal affect, normal mood - Skin Skin exam: Present: warm, dry, intact, normal color. Absent: rash ED Course Vital Signs 03/17/21 07:50 Temperature 98.3 F Pulse Rate 73 Respiratory 18 Rate Blood Pressure 117/83 [Right] O2 Sat by Pulse 99 Oximetry ED Medical Decision Making - Medical Decision Making Vital Signs 03/17/21 07:50 Temperature 98.3 F Pulse Rate 73 Respiratory 18 Rate Blood Pressure 117/83 [Right] O2 Sat by Pulse 99 Oximetry OUT OF NORVASC NO CP OR SOB A/C BACK PAIN NEEDS BACK SURGERY BUT IT WAS CANCELLED JUST PRIOR TO COVID PANDEMIC STATES HE NEEDS LUMBAR LAMINECTOMY AMBULATORY WITH NO S/S CAUDA EQUINA NO SPINE TENDERNESS DC HOME WITH DC INSTRUCTIONS- DIET,ACTIVITY, MEDS AND FOLLOW UP HE VERBALIZES UNDERSTANDING OF PLAN OF CARE. - Differential Diagnosis A/C BACK PAIN Critical care attestation.: If time is entered above; I have spent that time in minutes in the direct care of this critically ill patient, excluding procedure time. ED Disposition Clinical Impression: History of hypertension, Medication refill, Chronic back pain, Non-adherence to medical treatment Low back pain Qualifiers: Chronicity: unspecified Back pain laterality: right Sciatica presence: with sciatica Sciatica laterality: sciatica of right side Qualified Code(s): M54.41 - Lumbago with sciatica, right side Sciatica Qualifiers: Laterality: right Qualified Code(s): M54.31 - Sciatica, right side Disposition: HOME / SELF CARE / HOMELESS Is pt being admited?: No Does the pt Need Aspirin: No Condition: Stable Instructions: Sciatica, Chronic Back Pain Additional Instructions: FOLLOW UP WITH YOUR BACK DOCTOR FOLLOW UP WITH YOUR PCP FOR BP GOOD BODY POSTURE WILL HELP WITH SCIATICA WILL WARM COMPRESSES AND STRETCHING MEDS ORDERED TODAY STAY WELL HYDRATED Prescriptions: predniSONE [Deltasone] 20 mg PO DAILY #5 tablet Cyclobenzaprine [Flexeril] 10 mg PO TID PRN #10 tablet PRN Reason: Muscle Spasm Ibuprofen [Motrin] 800 mg PO Q8HR PRN #30 tablet PRN Reason: Pain, Moderate (4-6) Amlodipine Besylate [Norvasc] 5 mg PO QDAY #30 tablet Referrals: DEBORAH MAY MD [Staff Physician] - 3-5 Days COLLIN GORDILLO MD [Staff Physician] - 3-5 Days Forms: Work/School Release Form(ED) Time of Disposition: 08:05
== END 2021-03-17 08:55 | disposition home or self-care (01) ==
LOC: ED 07:20
DX: M54.41 Lumbago with sciatica, right side (principal); G89.29 Other chronic pain; I10 Essential (primary) hypertension; Z76.0 Encounter for issue of repeat prescription; R56.9 Unspecified convulsions; F31.9 Bipolar disorder, unspecified; F20.9 Schizophrenia, unspecified; F17.200 Nicotine dependence, unspecified, uncomplicated; Z79.899 Other long term (current) drug therapy; Z88.1 Allergy status to other antibiotic agents; Z91.09 Other allergy status, other than to drugs and biological substances
CPT/HCPCS: 99282

== ENCOUNTER 2021-05-26 11:39 | Emergency (ER) | payer BC ==
[2021-05-26 12:37] VITALS: BP 119/82
[2021-05-26] MEDS ORDERED: predniSONE 20 MG TAB PO ONE (13:16)
[2021-05-26] MEDS ORDERED: CYCLOBENZAPRINE 10 MG TAB PO ONE (13:16)
[2021-05-26] MEDS ORDERED: KETOROLAC 60 MG/2 ML INJ IM ONE (13:16)
--- NOTE | 2021-05-26 13:31 | Emergency Department Report ---
ED Back Pain/Injury HPI - General Chief Complaint: Back Pain/Injury Stated Complaint: SEVERE BACK PAIN Time Seen by Provider: 05/26/21 12:53 Source: patient Limitations: No Limitations - History of Present Illness Initial Comments: This is a 35-year-old male nontoxic, well nourished in appearance, no acute signs of distress presents to the ED with c/o of acute on chronic lower back pain. Patient stated that the past 2 days he was moving and developed this pain. Patient denies any radiation of pain. Patient denies any injuries or trauma. History of this conditions since 2013. Stated has laminectomy that should have been performed this year. Patient also stated gets yearly epidural and next epidural is due in June. Denies any bladder or bowel instability. Patient denies any urinary symptoms. Denies any fever, chills, nausea, vomiting, headache, stiff neck, chest pain or shortness of breath. Patient denies any numbness or tingling. Patient had allergies to Bactrim. MD Complaint: back pain -: days(s) Similar Symptoms Previously: Yes Radiation: none Severity: mild Severity scale (0 -10): 8 Quality: aching Consistency: intermittent Improves With: immobilization, sitting upright Worsens With: movement, walking Context: while lifting, turning/twisting Associated Symptoms: denies other symptoms. denies: confusion, weakness, chest pain, numbness, difficulty walking, cough, diaphoresis, incontinence, fever/chills, constipation, headaches, abdominal pain, loss of appetite, malaise, nausea/vomiting, rash, seizure, shortness of breath, syncope - Related Data Home Medications Medication Instructions Recorded Confirmed Last Taken levETIRAcetam [Keppra TAB] 750 mg PO BID 08/27/17 08/27/17 01/08/21 20:00 Previous Rx's Medication Instructions Recorded Last Taken Type Amlodipine Besylate [Norvasc] 5 mg PO QDAY #30 tablet 03/17/21 Unknown Rx Cyclobenzaprine [Flexeril] 10 mg PO TID PRN #10 tablet 03/17/21 Unknown Rx Ibuprofen [Motrin] 800 mg PO Q8HR PRN #30 tablet 03/17/21 Unknown Rx predniSONE [Deltasone] 20 mg PO DAILY #5 tablet 03/17/21 Unknown Rx Cyclobenzaprine [Flexeril] 10 mg PO QHS PRN #10 tab 05/26/21 Unknown Rx Naproxen 500 mg PO Q12H PRN #12 tab 05/26/21 Unknown Rx Allergies Allergy/AdvReac Type Severity Reaction Status Date / Time sulfamethoxazole Allergy Swelling Verified 01/09/21 08:01 [From Bactrim] trimethoprim [From Bactrim] Allergy Swelling Verified 01/09/21 08:01 ED Review of Systems ROS: Stated complaint: SEVERE BACK PAIN Other details as noted in HPI Comment: All other systems reviewed and negative Constitutional: denies: chills, fever Eyes: denies: eye pain, eye discharge, vision change ENT: denies: ear pain, throat pain Respiratory: denies: cough, shortness of breath, wheezing Cardiovascular: denies: chest pain, palpitations Endocrine: no symptoms reported Gastrointestinal: denies: abdominal pain, nausea, diarrhea Genitourinary: denies: urgency, dysuria Musculoskeletal: back pain. denies: joint swelling, arthralgia Skin: denies: rash, lesions Neurological: denies: headache, weakness, paresthesias Psychiatric: denies: anxiety, depression Hematological/Lymphatic: denies: easy bleeding, easy bruising ED Past Medical Hx - Past Medical History Hx Hypertension: Yes Hx Seizures: Yes Hx Psychiatric Treatment: Yes (bilpolar, depression) Additional medical history: Back pain/TENA - Social History Smoking Status: Current Every Day Smoker Substance Use Type: None - Medications Home Medications: Home Medications Medication Instructions Recorded Confirmed Last Taken Type levETIRAcetam [Keppra TAB] 750 mg PO BID 08/27/17 08/27/17 01/08/21 20:00 History Amlodipine Besylate [Norvasc] 5 mg PO QDAY #30 tablet 03/17/21 Unknown Rx Cyclobenzaprine [Flexeril] 10 mg PO TID PRN #10 tablet 03/17/21 Unknown Rx Ibuprofen [Motrin] 800 mg PO Q8HR PRN #30 tablet 03/17/21 Unknown Rx predniSONE [Deltasone] 20 mg PO DAILY #5 tablet 03/17/21 Unknown Rx Cyclobenzaprine [Flexeril] 10 mg PO QHS PRN #10 tab 05/26/21 Unknown Rx Naproxen 500 mg PO Q12H PRN #12 tab 05/26/21 Unknown Rx ED Physical Exam - General Limitations: No Limitations General appearance: alert, in no apparent distress - Head Head exam: Present: atraumatic, normocephalic - Eye Eye exam: Present: normal appearance - Neck Neck exam: Present: normal inspection, full ROM. Absent: lymphadenopathy - Respiratory Respiratory exam: Present: normal lung sounds bilaterally. Absent: respiratory distress, wheezes, rales, rhonchi, stridor, chest wall tenderness, accessory muscle use, decreased breath sounds, prolonged expiratory - Cardiovascular Cardiovascular Exam: Present: regular rate, normal rhythm, normal heart sounds. Absent: bradycardia, tachycardia, irregular rhythm, systolic murmur, diastolic murmur, rubs, gallop - GI/Abdominal GI/Abdominal exam: Present: soft. Absent: distended, tenderness - Extremities Exam Extremities exam: Present: normal inspection, full ROM, normal capillary refill. Absent: tenderness - Back Exam Back exam: Present: normal inspection, full ROM, paraspinal tenderness (lumbar paraspinal). Absent: tenderness, CVA tenderness (R), CVA tenderness (L), muscle spasm, vertebral tenderness, rash noted - Expanded Back Exam Expanded Back exam: Absent: saddle anesthesia Back exam: Negative Straight Leg Raising: Left, Right - Neurological Exam Neurological exam: Present: alert, oriented X3, normal gait - Psychiatric Psychiatric exam: Present: normal affect, normal mood - Skin Skin exam: Present: warm, dry, intact, normal color. Absent: rash ED Course Vital Signs 05/26/21 12:29 Temperature 98.7 F Pulse Rate 78 Respiratory 16 Rate Blood Pressure 119/82 O2 Sat by Pulse 98 Oximetry - Reevaluation(s) Reevaluation #1: 05/26/21 13:31 Patient is speaking in full sentences with no signs of distress noted. ED Medical Decision Making - Medical Decision Making This is a 35-year-old male that presents with low back pain. Patient is stable was examined by me. There is no spinal tenderness. There is no cauda equina syndrome during examination. No bladder or bowel instability. Patient received Toradol 60 mg IM, prednisone and Flexeril in the ED which stated his symptoms has resolved and subsided. Patient stated family will drive patient home after discharge due to possible drowsiness. Patient is discharged with muscle relaxant and naproxen. Patient was instructed not to operate any machinery while taking muscle relaxant as they cause her drowsiness. Patient was referred to Follow-up with a primary care doctor in 3-5 days or if symptoms worsen and continue return to emergency room as soon as possible. At time of discharge, the patient does not seem toxic or ill in appearance. No acute signs of distress noted. Patient agrees to discharge treatment plan of care. No further questions noted by the patient. This chart is dictated with using [employer] Critical care attestation.: If time is entered above; I have spent that time in minutes in the direct care of this critically ill patient, excluding procedure time. ED Disposition Clinical Impression: Low back pain Qualifiers: Chronicity: chronic Back pain laterality: bilateral Sciatica presence: without sciatica Qualified Code(s): M54.50 - Low back pain, unspecified; G89.29 - Other chronic pain Disposition: HOME / SELF CARE / HOMELESS Is pt being admited?: No Does the pt Need Aspirin: No Condition: Stable Instructions: What You Need to Know About Chronic Back Pain Additional Instructions: Follow-up with your primary care doctor in 3-5 days or if symptoms worsen such as bladder or bowel stability, chest pain, short of breath, numbness or tingling sensation in extremities, headache, dizziness, visual changes, nausea vomiting, or abdominal pain, return back to emergency room as was possible. Take naproxen and Flexeril as prescribed. Do not operate heavy machinery while taking Flexeril due to sedation Prescriptions: Cyclobenzaprine [Flexeril] 10 mg PO QHS PRN #10 tab PRN Reason: Muscle Spasm Naproxen 500 mg PO Q12H PRN #12 tab PRN Reason: Pain , Severe (7-10) Referrals: ARTHUR BRUNNER MD [Referring] - 3-5 Days COLLIN GORDILLO MD [Staff Physician] - 3-5 Days Time of Disposition: 14:46 (.)
== END 2021-05-26 15:00 | disposition home or self-care (01) ==
LOC: ED 11:39
DX: M54.50 Low back pain, unspecified (principal); I10 Essential (primary) hypertension; R56.9 Unspecified convulsions; Z98.890 Other specified postprocedural states; Z79.899 Other long term (current) drug therapy; F17.200 Nicotine dependence, unspecified, uncomplicated
CPT/HCPCS: 96372; 99282; J1885

== ENCOUNTER 2021-07-30 10:20 | Emergency (ER) | payer BC ==
[2021-07-30] MEDS ORDERED: HYDROcodone/ACETAMINOPHEN 5-325 MG TAB PO STA (14:06)
[2021-07-30] MEDS ORDERED: KETOROLAC 60 MG/2 ML INJ IM STA (14:06)
[2021-07-30] MEDS ORDERED: ONDANSETRON 4 MG ODT TAB PO STA (14:06)
--- NOTE | 2021-07-30 14:08 | Emergency Department Report ---
ED Back Pain/Injury HPI - General Chief Complaint: Back Pain/Injury Stated Complaint: SEVERE BACK PAIN Time Seen by Provider: 07/30/21 14:02 Source: patient Limitations: No Limitations - History of Present Illness Initial Comments: 35-year-old male with past medical history of chronic recurrent back pain who is due for a lumbar laminectomy in the very near future presents emerged department complaining of a reemergence of back pain while he was at work lifting heavy load. And presents emerged department seeking analgesic control reports no loss of bowel or bladder, no saddle paresthesia, no hematuria, no dysuria, no fever, chills, sweats. No chest pain or palpitations. MD Complaint: back pain -: Gradual, month(s) Similar Symptoms Previously: No Place: home Radiation: none Severity: mild Quality: dull, aching Consistency: constant Improves With: none Worsens With: none - Related Data Home Medications Medication Instructions Recorded Confirmed Last Taken levETIRAcetam [Keppra TAB] 750 mg PO BID 08/27/17 08/27/17 01/08/21 20:00 Previous Rx's Medication Instructions Recorded Last Taken Type Amlodipine Besylate [Norvasc] 5 mg PO QDAY #30 tablet 03/17/21 Unknown Rx Cyclobenzaprine [Flexeril] 10 mg PO TID PRN #10 tablet 03/17/21 Unknown Rx Ibuprofen [Motrin] 800 mg PO Q8HR PRN #30 tablet 03/17/21 Unknown Rx predniSONE [Deltasone] 20 mg PO DAILY #5 tablet 03/17/21 Unknown Rx Cyclobenzaprine [Flexeril] 10 mg PO QHS PRN #10 tab 05/26/21 Unknown Rx Naproxen 500 mg PO Q12H PRN #12 tab 05/26/21 Unknown Rx Ketorolac [Toradol] 10 mg PO Q6H PRN #15 tablet 07/30/21 Unknown Rx methOCARBAMOL [Robaxin TAB] 750 mg PO Q8H PRN #14 tablet 07/30/21 Unknown Rx Allergies Allergy/AdvReac Type Severity Reaction Status Date / Time sulfamethoxazole Allergy Swelling Verified 01/09/21 08:01 [From Bactrim] trimethoprim [From Bactrim] Allergy Swelling Verified 01/09/21 08:01 ED Review of Systems ROS: Stated complaint: SEVERE BACK PAIN Other details as noted in HPI Comment: All other systems reviewed and negative ED Past Medical Hx - Past Medical History Hx Hypertension: Yes Hx Seizures: Yes Hx Psychiatric Treatment: Yes (bilpolar, depression) Additional medical history: Back pain/TENA - Social History Smoking Status: Current Every Day Smoker Substance Use Type: None - Medications Home Medications: Home Medications Medication Instructions Recorded Confirmed Last Taken Type levETIRAcetam [Keppra TAB] 750 mg PO BID 08/27/17 08/27/17 01/08/21 20:00 History Amlodipine Besylate [Norvasc] 5 mg PO QDAY #30 tablet 03/17/21 Unknown Rx Cyclobenzaprine [Flexeril] 10 mg PO TID PRN #10 tablet 03/17/21 Unknown Rx Ibuprofen [Motrin] 800 mg PO Q8HR PRN #30 tablet 03/17/21 Unknown Rx predniSONE [Deltasone] 20 mg PO DAILY #5 tablet 03/17/21 Unknown Rx Cyclobenzaprine [Flexeril] 10 mg PO QHS PRN #10 tab 05/26/21 Unknown Rx Naproxen 500 mg PO Q12H PRN #12 tab 05/26/21 Unknown Rx Ketorolac [Toradol] 10 mg PO Q6H PRN #15 tablet 07/30/21 Unknown Rx methOCARBAMOL [Robaxin TAB] 750 mg PO Q8H PRN #14 tablet 07/30/21 Unknown Rx ED Physical Exam - General Limitations: No Limitations General appearance: alert, in no apparent distress - Head Head exam: Present: atraumatic, normocephalic - Eye Eye exam: Present: normal appearance, PERRL, EOMI Pupils: Present: normal accommodation - ENT ENT exam: Present: normal exam, normal orophraynx, mucous membranes moist, TM's normal bilaterally - Neck Neck exam: Present: normal inspection, full ROM - Respiratory Respiratory exam: Present: normal lung sounds bilaterally. Absent: respiratory distress, wheezes, rales, rhonchi, chest wall tenderness, accessory muscle use - Cardiovascular Cardiovascular Exam: Present: regular rate, normal rhythm. Absent: systolic murmur, diastolic murmur, rubs, gallop - GI/Abdominal GI/Abdominal exam: Present: soft, normal bowel sounds - Rectal Rectal exam: Present: deferred - Extremities Exam Extremities exam: Present: normal inspection - Back Exam Back exam: Present: normal inspection - Neurological Exam Neurological exam: Present: alert, oriented X3 - Psychiatric Psychiatric exam: Present: normal affect, normal mood - Skin Skin exam: Present: warm, dry, intact, normal color. Absent: rash ED Course Vital Signs 07/30/21 11:16 Temperature 99.2 F Pulse Rate 80 Respiratory 16 Rate Blood Pressure 113/77 [Left] O2 Sat by Pulse 97 Oximetry ED Medical Decision Making - Medical Decision Making Pt presents the emergency department complaining of back pain most consistent with musculoskeletal back Pain Most Consistent with Strain. Differential Diagnosis Includes Lumbar Go Versus Musculoskeletal Spasm, Strain Versus Sciatica. No Back Pain Red Flags on History or Physical. Presentation Not Consistent with Malignancy, Fracture, Cauda Equina, Abdominal Aortic Aneurysm, Viscus Perforation, Pulmonary Embolism, Renal Colic, Pyelonephritis. Patient reports no B symptoms, trauma trauma, incontinence, saddle anesthesia, distal weakness, urinary symptoms and is a febrile. Critical care attestation.: If time is entered above; I have spent that time in minutes in the direct care of this critically ill patient, excluding procedure time. ED Disposition Clinical Impression: Back pain Disposition: 01 HOME / SELF CARE / HOMELESS Is pt being admited?: No Does the pt Need Aspirin: No Condition: Stable Instructions: What You Need to Know About Chronic Back Pain, Chronic Back Pain, [id number], Back Injury Prevention Prescriptions: methOCARBAMOL [Robaxin TAB] 750 mg PO Q8H PRN #14 tablet PRN Reason: Pain, Moderate (4-6) Ketorolac [Toradol] 10 mg PO Q6H PRN #15 tablet PRN Reason: Pain Referrals: [facility] [Provider Group] - 3-5 Days DEBORAH MAY MD [Staff Physician] - 3-5 Days
[2021-07-30 15:33] VITALS: BP 129/78
== END 2021-07-30 15:34 | disposition home or self-care (01) ==
LOC: ED 10:20
DX: M54.9 Dorsalgia, unspecified (principal); I10 Essential (primary) hypertension; R56.9 Unspecified convulsions; F31.9 Bipolar disorder, unspecified; F17.200 Nicotine dependence, unspecified, uncomplicated; Z88.6 Allergy status to analgesic agent; Z88.1 Allergy status to other antibiotic agents; Z79.899 Other long term (current) drug therapy
CPT/HCPCS: 96372; 99282; J1885; J3490; Q0162

== ENCOUNTER 2021-08-21 11:18 | Emergency (ER) | payer BC ==
[2021-08-21 11:59] VITALS: BP 140/90
[2021-08-21] MEDS ORDERED: dexAMETHasone 4 MG/ML VIAL IM ONE (18:43)
[2021-08-21] MEDS ORDERED: KETOROLAC 60 MG/2 ML INJ IM ONE (18:43)
[2021-08-21] MEDS ORDERED: oxyCODONE /ACETAMINOPHEN 5-325MG TAB PO ONE (18:43)
--- NOTE | 2021-08-21 18:47 | Emergency Department Report ---
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 Patient reports excruciating pain in his lower back. Patient denies GI or symptoms. Patient denies weakness and paresthesia to his pelvic area. Patient does report tingling to bilateral legs.. Denies any problems walking. No other acute symptoms noted. No concerns for cauda equina. No recent direct injury to the back. Patient reports upcoming appointment this Monday with his spine provider. - Related Data Home Medications Medication Instructions Recorded Confirmed Last Taken levETIRAcetam [Keppra TAB] 750 mg PO BID 08/27/17 08/27/17 01/08/21 20:00 Previous Rx's Medication Instructions Recorded Last Taken Type Amlodipine Besylate [Norvasc] 5 mg PO QDAY #30 tablet 03/17/21 Unknown Rx Cyclobenzaprine [Flexeril] 10 mg PO TID PRN #10 tablet 03/17/21 Unknown Rx Ibuprofen [Motrin] 800 mg PO Q8HR PRN #30 tablet 03/17/21 Unknown Rx predniSONE [Deltasone] 20 mg PO DAILY #5 tablet 03/17/21 Unknown Rx Cyclobenzaprine [Flexeril] 10 mg PO QHS PRN #10 tab 05/26/21 Unknown Rx Naproxen 500 mg PO Q12H PRN #12 tab 05/26/21 Unknown Rx Ketorolac [Toradol] 10 mg PO Q6H PRN #15 tablet 07/30/21 Unknown Rx methOCARBAMOL [Robaxin TAB] 750 mg PO Q8H PRN #14 tablet 07/30/21 Unknown Rx Acetaminophen/Codeine [Tylenol 1 tab PO Q6H PRN 2 Days #8 tab 08/21/21 Unknown Rx /Codeine # 3 tab] Ibuprofen [Motrin] 600 mg PO Q8H PRN 7 Days #21 tablet 08/21/21 Unknown Rx methOCARBAMOL [Robaxin TAB] 500 mg PO Q8HR PRN 7 Days #21 tab 08/21/21 Unknown Rx predniSONE [Deltasone] 40 mg PO QDAY 5 Days #10 tab 08/21/21 Unknown Rx Allergies Allergy/AdvReac Type Severity Reaction Status Date / Time sulfamethoxazole Allergy Swelling Verified 01/09/21 08:01 [From Bactrim] trimethoprim [From Bactrim] Allergy Swelling Verified 01/09/21 08:01 ED Review of Systems ROS: Stated complaint: BACK PAIN Other details as noted in HPI Comment: All other systems reviewed and negative Musculoskeletal: back pain, arthralgia ED Past Medical Hx - Past Medical History Previous Medical History?: Yes Hx Hypertension: Yes Hx Seizures: Yes Hx Psychiatric Treatment: Yes (bilpolar, depression) Additional medical history: Back pain/TENA - Social History Smoking Status: Current Every Day Smoker Substance Use Type: None - Medications Home Medications: Home Medications Medication Instructions Recorded Confirmed Last Taken Type levETIRAcetam [Keppra TAB] 750 mg PO BID 08/27/17 08/27/17 01/08/21 20:00 History Amlodipine Besylate [Norvasc] 5 mg PO QDAY #30 tablet 03/17/21 Unknown Rx Cyclobenzaprine [Flexeril] 10 mg PO TID PRN #10 tablet 03/17/21 Unknown Rx Ibuprofen [Motrin] 800 mg PO Q8HR PRN #30 tablet 03/17/21 Unknown Rx predniSONE [Deltasone] 20 mg PO DAILY #5 tablet 03/17/21 Unknown Rx Cyclobenzaprine [Flexeril] 10 mg PO QHS PRN #10 tab 05/26/21 Unknown Rx Naproxen 500 mg PO Q12H PRN #12 tab 05/26/21 Unknown Rx Ketorolac [Toradol] 10 mg PO Q6H PRN #15 tablet 07/30/21 Unknown Rx methOCARBAMOL [Robaxin TAB] 750 mg PO Q8H PRN #14 tablet 07/30/21 Unknown Rx Acetaminophen/Codeine [Tylenol 1 tab PO Q6H PRN 2 Days #8 tab 08/21/21 Unknown Rx /Codeine # 3 tab] Ibuprofen [Motrin] 600 mg PO Q8H PRN 7 Days #21 tablet 08/21/21 Unknown Rx methOCARBAMOL [Robaxin TAB] 500 mg PO Q8HR PRN 7 Days #21 tab 08/21/21 Unknown Rx predniSONE [Deltasone] 40 mg PO QDAY 5 Days #10 tab 08/21/21 Unknown Rx ED Physical Exam - General Limitations: No Limitations General appearance: alert, in no apparent distress - Head Head exam: Present: atraumatic, normocephalic - Eye Eye exam: Present: normal appearance - ENT ENT exam: Present: mucous membranes moist - Neck Neck exam: Present: normal inspection - Respiratory Respiratory exam: Present: normal lung sounds bilaterally. Absent: respiratory distress - Cardiovascular Cardiovascular Exam: Present: regular rate, normal rhythm. Absent: systolic murmur, diastolic murmur, rubs, gallop - GI/Abdominal GI/Abdominal exam: Present: soft, normal bowel sounds - Rectal Rectal exam: Present: deferred - Extremities Exam Extremities exam: Present: normal inspection - Back Exam Back exam: Present: tenderness, muscle spasm, paraspinal tenderness. Absent: full ROM - Expanded Back Exam Expanded Back exam: Present: other (No mass noted on exam.) Back exam: Positive Straight Leg Raise: Left, Right - Neurological Exam Neurological exam: Present: alert, oriented X3 - Psychiatric Psychiatric exam: Present: normal affect, normal mood - Skin Skin exam: Present: warm, dry, intact, normal color. 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 Patient reports excruciating pain in his lower back. Patient denies GI or symptoms. Patient denies weakness and paresthesia to his pelvic area. Patient does report tingling to bilateral legs.. Denies any problems walking. No other acute symptoms noted. No concerns for cauda equina. No recent direct injury to the back. Patient reports upcoming appointment this Monday with his spine provider. On physical exam there is midline tenderness to lumbar area and bilateral lumbar tenderness to the muscular region. No imaging is needed at this time. Patient reports he just had a CT of his lumbar within the past week and a half. Patient given pain medicine here in the ER. Patient sent home with pain medication for pain control. Patient agrees with plan of care and verbalizes understanding. Patient informed symptoms are to get worse to report back to the ER. 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 Vital Signs 08/21/21 11:56 Temperature 99.1 F Pulse Rate 80 Respiratory 16 Rate Blood Pressure 140/90 [Left] O2 Sat by Pulse 97 Oximetry Critical care attestation.: If time is entered above; I have spent that time in minutes in the direct care of this critically ill patient, excluding procedure time. ED Disposition Clinical Impression: Chronic back pain Qualifiers: Back pain location: low back pain Back pain laterality: bilateral Sciatica presence: without sciatica Qualified Code(s): M54.50 - Low back pain, unspecified Disposition: HOME / SELF CARE / HOMELESS Is pt being admited?: No Condition: Stable Instructions: Chronic Pain, Adult, Chronic Back Pain, [id number] Prescriptions: predniSONE [Deltasone] 40 mg PO QDAY 5 Days #10 tab Ibuprofen [Motrin] 600 mg PO Q8H PRN 7 Days #21 tablet PRN Reason: Pain methOCARBAMOL [Robaxin TAB] 500 mg PO Q8HR PRN 7 Days #21 tab PRN Reason: Muscle Spasm Acetaminophen/Codeine [Tylenol /Codeine # 3 tab] 1 tab PO Q6H PRN 2 Days #8 tab PRN Reason: Pain , Severe (7-10) Referrals: PRIMARY CARE,MD [Primary Care Provider] - 3-5 Days Forms: Work/School Release Form(ED) Time of Disposition: 18:54
== END 2021-08-21 19:05 | disposition home or self-care (01) ==
LOC: ED 11:18
DX: G89.29 Other chronic pain (principal); M54.50 Low back pain, unspecified; F17.200 Nicotine dependence, unspecified, uncomplicated; I10 Essential (primary) hypertension; Z88.2 Allergy status to sulfonamides; Z88.8 Allergy status to other drugs, medicaments and biological substances
CPT/HCPCS: 96372; 99282; J1100; J1885